=== PATIENT | male | born 1970 | race Caucasian/White ===

== ENCOUNTER → 2024-12-21 11:39 | Outpatient (BNVA) | payer OTHER, SELFPAY | PROVIDERS: Visit Provider Physician Assistant Medical | DX: S16.1XXA Strain of muscle, fascia and tendon at neck level, initial encounter (principal); S39.012A Strain of muscle, fascia and tendon of lower back, initial encounter; S50.02XA Contusion of left elbow, initial encounter; S60.212A Contusion of left wrist, initial encounter; S60.211A Contusion of right wrist, initial encounter; S63.501A Unspecified sprain of right wrist, initial encounter; S63.502A Unspecified sprain of left wrist, initial encounter; S93.401A Sprain of unspecified ligament of right ankle, initial encounter; W00.0XXA Fall on same level due to ice and snow, initial encounter; I10 Essential (primary) hypertension | CPT/HCPCS: 73080; 73110; 73130; 73610; 99204 ==

== ENCOUNTER → 2025-01-14 14:58 | Outpatient (BNVA) | payer OTHER, SELFPAY | PROVIDERS: Visit Provider Physician Assistant Medical | DX: S39.012A Strain of muscle, fascia and tendon of lower back, initial encounter (principal); W00.0XXA Fall on same level due to ice and snow, initial encounter | CPT/HCPCS: 99213 ==

== ENCOUNTER → 2025-02-01 14:30 | Outpatient (BNVA) | payer OTHER, SELFPAY | PROVIDERS: Visit Provider Physician Assistant Medical | DX: S39.012D Strain of muscle, fascia and tendon of lower back, subsequent encounter (principal); W00.0XXD Fall on same level due to ice and snow, subsequent encounter | CPT/HCPCS: 99213 ==

== ENCOUNTER 2025-02-10 08:03 | Outpatient (RCR) | payer OTHER, SELFPAY ==
[2025-01-22 13:05] VITALS: BP 144/96; PULSE 72
--- NOTE | 2025-01-22 13:58 | MHC.PT.EP ---
[facility] [place] [facility] [place] [facility] [place] [facility] [address] Lisy Kaplan [address] [phone] F: [phone] F: [phone] F: [phone] F: [phone] Physical Therapy Plan of Care Date of Evaluation: 01/22/25 Date of Surgery: NA Diagnosis: Lumbar strain Assessment: Lloyd is a 54 year old male who is referred to PT for lumbar strain . He reports of injuring his back secondary to fall on ice about 1 month back. He has had intermittent pain in his low back since the fall however about 1 week back he started experiencing spasm in low back. On PT examination he reports of having intermittent back pain which comes on spontaneously. The intensity varied from 0 to 6/10, TTP noted R side thoraco-lumbar paraspinals- from T11 to L2, decreased lumbar ROM, decrease core strength and altered posture. He lives with his mother and is independent with all ADLS but has pain. 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 He would benefit from skilled PT to address the aforementioned impairments and improve tolerance to functional activities. Frequency and Duration: The patient will be seen 2/week for 4 weeks Short Term Goals: 1. Pt will demonstrate initiation of HEP in 2 weeks 2. Pt will be able to move his trunk through all planes of motion without pain which will enable him to dress his lower body without pain in 3 weeks Long-Term Goals: 1. Pt will demonstrate an increase in muscle strength by 1 grade which will enable him to perform all ADLS without pain in 4 weeks 2. Pt will be independent with all HEP and return to PLOF in 4 weeks. Treatment Plan: Modalities to reduce pain, spasms and effusion. Manual therapy to restore motion and function. Therapeutic exercise to improve strength and flexibility. Neuromuscular re-education for posture and balance. Therapeutic activities to return to functional activities of daily living. Electronically signed by: Rosa Lutz PT DPT Please sign and return to therapist. Thank you for your referral.
--- NOTE | 2025-03-23 10:31 | MHC.PT.DC ---
[facility] [place] Office [place] Office [place] [facility] [address] Lisy Kaplan [address] [phone] F: [phone] F: [phone] F: [phone] F: [phone] Physical Therapy Discharge Report Diagnosis: Lumbar strain Date of Surgery: NA Date of Evaluation: 01/22/25 Date of Discharge: 03/23/25 Treatments to Date: 3 Cancellations to Date: 0 No Shows to Date: 1 Discharge Status: Achieved Goals Improved Function Independent with HEP Discharge Summary: Lloyd attended 3 PT visits and made significant improvements with PT. He is independent with all HEPs. He is therefore being d/c from PT. Electronically signed by: Rosa Lutz, PT DPT Please sign and return to therapist. Thank you for your referral.
== END 2025-03-23 10:31 | disposition home or self-care (01) ==
LOC: HO.PT 08:03
PROVIDERS: Visit Provider Physician Assistant Medical
DX: S39.012D Strain of muscle, fascia and tendon of lower back, subsequent encounter (principal)
CPT/HCPCS: 97110; 97112; 97161

== ENCOUNTER → 2025-03-17 14:15 | Outpatient (BNVA) | payer OTHER, SELFPAY | PROVIDERS: Visit Provider Physician Assistant Medical | DX: S39.012D Strain of muscle, fascia and tendon of lower back, subsequent encounter (principal); W00.0XXD Fall on same level due to ice and snow, subsequent encounter; Z02.79 Encounter for issue of other medical certificate | CPT/HCPCS: 99213 ==